=== PATIENT | male | born 1995 | race Caucasian/White ===

== ENCOUNTER 2016-09-25 15:46 | Emergency (ER) | payer BC, OTHER ==
[2016-09-25] MEDS ORDERED: IBUPROFEN 800 MG TABLET PO STA (16:09)
[2016-09-25] MEDS ORDERED: IBUPROFEN 800 MG TABLET PO ONE (16:15)
[2016-09-25] MEDS ORDERED: NITROFURANTOIN MACRO 100 MG CAPSULE PO STA (17:06)
[2016-09-25] MEDS ORDERED: NITROFURANTOIN MACRO 100 MG CAPSULE PO ONE (17:22)
== END 2016-09-25 17:23 | disposition home or self-care (01) ==
DX: M54.6 Pain in thoracic spine (principal); N39.0 Urinary tract infection, site not specified
CPT/HCPCS: 72070; 81001; 87086; 99282; 99283; A9270